=== PATIENT | male | born 1975 | race Caucasian/White ===

== ENCOUNTER 2019-04-30 21:02 | Emergency (ER) | payer SELFPAY ==
[2019-04-30 21:15] VITALS: BP 143/99
[2019-04-30] MEDS ORDERED: LIDOCAINE 1% INJ-PF (10 MG/ML) 30 ML SDV INJ ONE (22:02)
[2019-04-30] MEDS ORDERED: OXYCODONE-ACETAMINOPHEN 5-325 MG TABLET PO ONE (22:02)
--- NOTE | 2019-04-30 23:39 | ER Document Report ---
ED Skin Rash/Insect Bite/Abscs - General Chief Complaint: Abscess Stated Complaint: POSSIBLE INSECT BITE Time Seen by Provider: 04/30/19 21:36 Primary Care Provider: [facility] [Provider Group] - Follow up as needed [facility] [Provider Group] - Follow up as needed Notes: Patient is a 43-year-old male presents to the emergency department with an area of erythema noted to the left lateral lower leg. States he has noticed it for approximately the last week. States initially he thought it was a bug bite. States he did try to pop it and it expressed a white discharge. States the redness and swelling have increased which is why he presents to the emergency department. Small area of black tissue noted centrally. Patient's denying any fevers, is denying any history of MRSA infections or abscesses in the past. Patient's denying any IV drug use. Patient has no medical problems, takes no daily medications, has no allergies. TRAVEL OUTSIDE OF THE [place] IN LAST 30 DAYS: No - Related Data Home Medications: Wellbutrin Past Medical History - General Information source: Patient - Social History Smoking Status: Never Smoker Family History: Reviewed & Not Pertinent Patient has suicidal ideation: No Patient has homicidal ideation: No Review of Systems - Review of Systems Constitutional: denies: Fever EENT: No symptoms reported Cardiovascular: No symptoms reported Respiratory: No symptoms reported Gastrointestinal: No symptoms reported Genitourinary: No symptoms reported Male Genitourinary: No symptoms reported Musculoskeletal: No symptoms reported Skin: See HPI Hematologic/Lymphatic: No symptoms reported Neurological/Psychological: No symptoms reported Physical Exam - Vital signs Vitals: Temp Pulse Resp BP Pulse Ox 98.2 F 93 16 143/99 H 96 04/30/19 21:14 04/30/19 21:14 04/30/19 21:14 04/30/19 21:14 04/30/19 21:14 - Notes Notes: GENERAL: Alert, interacts well. No acute distress. HEAD: Normocephalic, atraumatic. EYES: Pupils equal, round, and reactive to light. Extraocular movements intact. ENT: Oral mucosa moist, tongue midline. NECK: Full range of motion. Supple. Trachea midline. LUNGS: Clear to auscultation bilaterally, no wheezes, rales, or rhonchi. No respiratory distress. HEART: Regular rate and rhythm. No murmur ABDOMEN: Soft, non-tender. Non-distended. Bowel sounds present in all 4 quadrants. EXTREMITIES: Moves all 4 extremities spontaneously. normal radial and dorsalis pedis pulses bilaterally. No cyanosis. BACK: no cervical, thoracic, lumbar midline tenderness. No saddle anesthesia, normal distal neurovascular exam. NEUROLOGICAL: Alert and oriented x3. Normal speech. cranial nerves II through XII grossly intact PSYCH: Normal affect, normal mood. SKIN: Warm, dry, normal turgor. 8 cm x 7 cm area of erythema noted left lateral lower leg. Central fluctuance noted approximately 2 cm x 2 cm with a small area of black tissue. Course - Re-evaluation Re-evalutation: 04/30/19 23:36 Abscess incised and drained, see procedure note for details. Patient tolerated well. Will cover with medications for MRSA. Also discussed close follow-up with primary care provider with close return precautions. Patient voices understanding, stable for discharge. - Vital Signs Vital signs: Temp Pulse Resp BP Pulse Ox 98.2 F 93 16 143/99 H 96 04/30/19 21:14 04/30/19 21:14 04/30/19 21:14 04/30/19 21:14 04/30/19 21:14 Procedures - Incision and Drainage Left lower leg Type: Simple Anesthetic type: 1% Lidocaine mL's of anesthetic: 5 Blade size: 11 I&D procedure: Betadine prep applied, Chlorprep applied, Sterile dressing applied Incision Method: Incision made by scalpel Amount/type of drainage: Copious, purulent Notes: Loculations broken. Irrigated copiously. Adult Front & Back picture: 1 - Abscess, cellulitis. Discharge - Discharge Clinical Impression: Abscess Cellulitis Qualifiers: Site of cellulitis: extremity Site of cellulitis of extremity: lower extremity Laterality: left Qualified Code(s): L03.116 - Cellulitis of left lower limb Condition: Stable Disposition: HOME, SELF-CARE Instructions: Abscess ([facility]), Cephalexin ([facility]), MRSA Cellulitis ([facility]), Oral Narcotic Medication ([facility]), Post Incision and Drainage, Trimethoprim-Sulfa ([facility]) Additional Instructions: As we discussed you have been seen and treated in the emergency department for an abscess to your left lower leg. Please make sure you are soaking it at least 3 times a day and warm water and Epson salt. This will help with the drainage. Please expect you should continue with drainage. Please make sure you are taking antibiotics as prescribed. After 48 hours of taking antibiotics should the redness, swelling not appear to be improved to return to the emergency room. Should you develop a fever or any other concerns for a systemic infection please immediately return to the emergency room. Prescriptions: Sulfamethoxazole/Trimethoprim [Bactrim Ds Tablet] 1 each PO BID 7 Days #14 tablet Cephalexin Monohydrate [Keflex 500 mg Capsule] 500 mg PO BID 7 Days #14 capsule Forms: Return to Work Referrals: [facility] [Provider Group] - Follow up as needed [facility] [Provider Group] - Follow up as needed
[2019-04-30] MEDS ORDERED: SULFAMETHOXAZOLE/TRIMETHOPRIM 800-160 MG TABLET PO ONE (23:41)
[2019-04-30] MEDS ORDERED: CEPHALEXIN 500 MG CAPSULE PO ONE (23:41)
[2019-04-30] MEDS ORDERED: HYDROCODONE/ACETAMINOPHEN 5-325 MG (6 TAB/ER DISP) PO PRN (23:41)
== END 2019-05-01 00:03 | disposition home or self-care (01) ==
LOC: ER 21:02
PROC: 0H9LXZZ Drainage of Left Lower Leg Skin, External Approach (ICD-10-PCS; principal; 2019-04-30)
DX: L02.416 Cutaneous abscess of left lower limb (principal); L03.116 Cellulitis of left lower limb
CPT/HCPCS: 99283; 10060; J3490